=== PATIENT | female | born 1980 | race Two or more races ===

== ENCOUNTER 2022-11-15 22:55 | Emergency (ER) | payer OTHER ==
[~2022-11-15] VITALS: Ht 167.6 cm; Wt 90.7 kg
[2022-11-15] MEDS ORDERED: LEVOTHYROXINE75 MC1 PO (23:23)
[2022-11-15] MEDS ORDERED: PREDNISONE20 MG PO (23:23)
[2022-11-15] MEDS ORDERED: FAMOTIDINE40 MG PO (23:23)
[2022-11-15] MEDS ORDERED: LETAIRIS10 MG PO (23:24)
[2022-11-15] MEDS ORDERED: SILDENAFIL20 MG PO (23:24)
[2022-11-15] MEDS ORDERED: LASIX40 MG PO (23:25)
[2022-11-15] MEDS ORDERED: VENTOLIN HFA18 GM INH (23:25)
[2022-11-15] MEDS ORDERED: ADVAIR HFA 115-12 GM INH (23:25)
[2022-11-15] MEDS ORDERED: K-TAB ER20 MEQ PO (23:25)
[2022-11-15] MEDS ORDERED: UPTRAVI 1000 MCG PO (23:26)
[2022-11-16 00:07] VITALS: BP 108/56
--- NOTE | 2022-11-16 21:28 | EKG ---
[facility] [address] [place], [place] [address] Signed Normal sinus rhythm Right atrial enlargement Right axis deviation Right ventricular hypertrophy with repolarization abnormality Nonspecific T wave abnormality Prolonged QT Abnormal ECG No previous ECGs available Confirmed by HELENA CARRERA MD ([id number] on 11/16/2022 9:28:34 PM Electronically Signed By: HELENA CARRERA MD 11/16/222127 PATIENT NAME: REYNOLD SULLIVAN Electrocardiogram DATE OF : 80 PHYSICIAN: HELENA CARRERA MD REPORT #: [id number] REPORT IS CONFIDENTIAL AND NOT TO BE RELEASED WITHOUT AUTHORIZATION
== END 2022-11-16 00:30 | disposition home or self-care (01) ==
LOC: ED 22:55
DX: I47.1 Supraventricular tachycardia (principal); I10 Essential (primary) hypertension; E03.9 Hypothyroidism, unspecified; Z88.5 Allergy status to narcotic agent; Z79.52 Long term (current) use of systemic steroids; Z79.890 Hormone replacement therapy; Z79.899 Other long term (current) drug therapy
CPT/HCPCS: 36415; 80053; 83735; 85025; 85060; 93005; 93010; 99285-25